=== PATIENT | female | born 1955 | race Caucasian/White ===

== ENCOUNTER 2019-09-08 13:01 | Emergency (ER) | payer OTHER ==
[~2019-09-08] VITALS: Ht 162.6 cm; Wt 84.2 kg
--- NOTE | 2019-09-08 13:18 | NUR ---
Pt ambulates from triage to SI/HI secured room with steady gait and balance. Pt ambulates to restroom with UA cup. catechist collecting pt's belongings and UA. Hospital bed provided for pt in SI/HI secured room.
[2019-09-08 13:43] LABS: MEAN CORPUSCULAR HEMOGLOBIN 31.5 pg (27.0-34.8); MEAN CORPUSCULAR HGB CONC 32.4 g/dL (32.4-35.8); MEAN CORPUSCULAR VOLUME 97.3 fL (80-100); MEAN PLATELET VOLUME 7.1 fL (7.4-10.4); PLATELET COUNT 403 x10^3/uL (130-400); RED BLOOD COUNT 4.23 x10^6/uL (3.82-5.3)
[2019-09-08] MEDS ORDERED: muscle relaxer (13:50)
[2019-09-08] MEDS ORDERED: Topiramate PO ×2 (13:50→18:21)
[2019-09-08] MEDS ORDERED: Ventolin (13:50)
[2019-09-08] MEDS ORDERED: Dilantin PO ×2 (13:50→18:21)
[2019-09-08] MEDS ORDERED: Dulera INH (13:50)
[2019-09-08] MEDS ORDERED: LYSI100010 PO (13:50)
[2019-09-08] MEDS ORDERED: Albuterol (13:50)
[2019-09-08] MEDS ORDERED: Mirtazapine PO ×2 (13:50→18:21)
[2019-09-08] MEDS ORDERED: CITA40TA5 PO (13:50)
[2019-09-08] MEDS ORDERED: OMEP40CA42 PO (13:50)
[2019-09-08] MEDS ORDERED: Tizanidine PO ×2 (13:50→18:21)
--- NOTE | 2019-09-08 13:50 | NUR ---
Pt states to ED RN, "I have migraines all the time. I lost my job because of them. I am trying to file for disability because of it. The migraines lead to my depression."
[2019-09-08 13:53] LABS: ANION GAP 6 mmol/L (5-15); CALCIUM 8.6 mg/dL (8.5-10.1); CHLORIDE 114 mmol/L (98-107); CREATININE 0.78 mg/dL (0.55-1.02)
[2019-09-08 13:56] LABS: RED CELL DISTRIBUTION WIDTH 13.2 % (9.6-15.2)
[2019-09-08 13:59] LABS: AMPHETAMINE SCREEN, URINE Negative (Negative); BARBITURATE SCREEN, URINE Negative (Negative); BENZODIAZEPINE SCREEN, URINE Negative (Negative); CANNABINOID SCREEN, URINE Positive (Negative); COCAINE SCREEN, URINE Negative (Negative); METHADONE SCREEN, URINE Negative (Negative); OPIATE SCREEN, URINE Negative (Negative)
[2019-09-08 14:02] LABS: BASOPHILS # (AUTO) 0.07 x10^3/uL (0-0.1); BASOPHILS % (AUTO) 1 % (0-1); EOSINOPHILS # (AUTO) 0.15 x10^3/uL (0-0.4); EOSINOPHILS % (AUTO) 2 % (1-7); LYMPHOCYTES # (AUTO) 2.83 x10^3/uL (1-3.4); LYMPHOCYTES % (AUTO) 36 % (22-44); MD SCAN; MONOCYTES # (AUTO) 0.46 x10^3/uL (0.2-0.8); MONOCYTES % (AUTO) 6 % (2-9); NEUTROPHILS # (AUTO) 4.31 x10^3/uL (1.8-6.8); NEUTROPHILS % (AUTO) 55 % (42-75)
[2019-09-08 14:06] LABS: SALICYLATE LEVEL < 1.7 mg/dL (2.8-20.0)
--- NOTE | 2019-09-08 14:07 | NUR ---
Pt sitting on hospital bed talking to sittern. No needs expressed at this time. Sitter in direct line of sight for observation.
--- NOTE | 2019-09-08 14:25 | NUR ---
Pt's family member at bedside per pt request. NADN. Sitter near doorway in direct line of sight for observation.
--- NOTE | 2019-09-08 14:26 | NUR ---
Pt's family member left.
--- NOTE | 2019-09-08 15:43 | NUR ---
Psych WR[employer]PER [employer]ER in room with ptAaron AGARWAL. No needs expressed. Sitter near doorway in direct line of sight for observation.
--- NOTE | 2019-09-08 15:44 | NUR ---
Dinner tray ordered for pt.
--- NOTE | 2019-09-08 16:43 | NUR ---
LATE NOTE ENTRY DUE TO PT CARE. Pt provided dinner tray. Pt appreciative. Pt sitting on hospital bed watching TV. Sitter near doorway in direct line of sight for observation. NADN. No other needs expressed.
--- NOTE | 2019-09-08 17:18 | NUR ---
Liliane Velazco, , pt's son called. Pt gave verbal consent to speak to her son about her medical care. Liliane updated on pt's plan of care.
--- NOTE | 2019-09-08 17:23 | NUR ---
PACKET FAXED TO [facility], [facility], [facility], [facility] AND [facility]. ALSO FAXED TO [facility]#[phone] THEY WILL LOOK OVER IT TOMORROW
--- NOTE | 2019-09-08 18:04 | NUR ---
Provided RN to RN report to GINA Dye at [facility]. All questions answered. GINA Dye states, "we are accepting this pt at [facility]."
--- NOTE | 2019-09-08 18:18 | NUR ---
LATE NOTE ENTRY DUE TO PT CARE. Pt resting on hospital bed watching TV. NADN. No needs expressed. Sitter near doorway in direct line of sight for observation.
[2019-09-08 19:12] VITALS: BP 155/96
--- NOTE | 2019-09-08 19:15 | NUR ---
pt resting on gurney, stated i still have suicidal thoughts, i will od on medication or drive my car off a [place]",. vss, room secured, sitter at doorway for continous monitoring
--- NOTE | 2019-09-08 19:37 | NUR ---
Provided report to GINA Barcenas. All questions answered. GINA Barcenas to assume care of pt at this time.
[2019-09-08] MEDS ORDERED: ONDANSETRON ODT 4 MG ONE (19:40)
[2019-09-08] MEDS ORDERED: ACETAMINOPHEN 500 MG TABLET ONE (19:40)
--- NOTE | 2019-09-08 19:44 | NUR ---
pt c/o h/a and nausea, erp updated. pt medicated per mar
[2019-09-08] MEDS ORDERED: ONDANSETRON ODT 4 MG PO ONE (20:00)
[2019-09-08] MEDS ORDERED: ACETAMINOPHEN 500 MG TABLET PO ONE (20:00)
--- NOTE | 2019-09-08 20:05 | NUR ---
pt resting in bed watching tv, denies needs, nad, respirations even and unlabored, sitter at doorway for continous monitoring
--- NOTE | 2019-09-08 20:29 | NUR ---
PT PERSONAL BELONGINGS AND REPORT GIVEN TO [place], PT TRASFER TO [facility]
[2019-09-08] MEDS ORDERED: MIRTAZAPINE 15 MG TABLET PO SCH (21:00)
[2019-09-08] MEDS ORDERED: TIZANIDINE 4MG TABLET PO SCH (21:00)
[2019-09-08] MEDS ORDERED: TOPIRAMATE 100 MG TABLET PO SCH (21:00)
[2019-09-09] MEDS ORDERED: CITALOPRAM 20 MG TABLET PO SCH (09:00)
== END 2019-09-08 20:32 ==
LOC: ED 16:14
DX: R45.851 Suicidal ideations (principal)
CPT/HCPCS: 36415; 80048; 80307; 82040; 85025; 99285; Q0162